=== PATIENT | female | born 1955 | race Caucasian/White ===

== ENCOUNTER 2016-12-20 23:57 | Emergency (ER) | payer OTHER ==
[2016-12-21 01:32] VITALS: BP 149/94
[2016-12-21 02:25] LABS: microscopic required? YES; urine erythrocyte TRACE (NEGATIVE)
== END 2016-12-21 01:32 | disposition home or self-care (01) ==
LOC: ED 23:57 → EDBD 23:57 → ED 12-21 01:32
PROVIDERS: Emergency Medicine
DX: N39.0 Urinary tract infection, site not specified (principal); K21.9 Gastro-esophageal reflux disease without esophagitis; F17.210 Nicotine dependence, cigarettes, uncomplicated; R03.0 Elevated blood-pressure reading, without diagnosis of hypertension; J44.9 Chronic obstructive pulmonary disease, unspecified; M79.1 Myalgia; Z88.8 Allergy status to other drugs, medicaments and biological substances; Z71.6 Tobacco abuse counseling
CPT/HCPCS: 99406